=== PATIENT | female | born 1985 | race Caucasian/White ===

== ENCOUNTER 2018-01-06 09:00 | Emergency (ER) | payer OTHER ==
[~2018-01-06] VITALS: Ht 160 cm; Wt 59.9 kg
[2018-01-06] MEDS ORDERED: ATABEX EC CAPL1 EACH (09:15)
[2018-01-06] MEDS ORDERED: ZANTAC150 MG (09:15)
== END 2018-01-06 18:10 | disposition home or self-care (01) ==
LOC: ER 09:00
DX: O20.0 Threatened abortion (principal); Z34.81 Encounter for supervision of other normal pregnancy, first trimester

== ENCOUNTER 2018-05-07 20:26 | Outpatient (CLI) | payer OTHER ==
[~2018-05-07 20:26] MED LIST: ATABEX EC CAPL1 EACH; ZANTAC150 MG
== END 2018-05-07 20:52 | disposition home or self-care (01) ==
LOC: NST 20:26
DX: Z34.82 Encounter for supervision of other normal pregnancy, second trimester (principal)

== ENCOUNTER 2018-08-14 15:15 | Inpatient (IN) | payer OTHER ==
[~2018-08-14] VITALS: Ht 160 cm; Wt 67.1 kg
[2018-09-01] MEDS ORDERED: PROTONIX20 MG PO (09:55)
== END 2018-09-03 13:02 | disposition home or self-care (01) | DRG 775 ==
LOC: LDR 09-01 09:36 → OB/GYN 09-01 09:36
PROC: 10E0XZZ Delivery of Products of Conception, External Approach (ICD-10-PCS; principal; 2018-09-01)
PROC: 0KQM0ZZ Repair Perineum Muscle, Open Approach (ICD-10-PCS; 2018-09-01)
PROC: 4A1HXCZ Monitoring of Products of Conception, Cardiac Rate, External Approach (ICD-10-PCS; 2018-09-01)
PROC: 4A033R1 Measurement of Arterial Saturation, Peripheral, Percutaneous Approach (ICD-10-PCS; 2018-09-01)
DX: O70.1 Second degree perineal laceration during delivery (principal); Z37.0 Single live birth; Z3A.39 39 weeks gestation of pregnancy